=== PATIENT | male | born 1975 | race Caucasian/White ===

== ENCOUNTER 2023-05-16 09:31 | Emergency (ER) | payer OTHER, SELFPAY ==
[2023-05-16 09:38] VITALS: BP 131/73; PULSE 67; RESP 16; TEMP 36; O2SAT 97; BMI 22.8
--- NOTE | 2023-05-16 11:09 | CRLHL7_ITS ---
For Patients: As a result of the Century Cures Act, medical imaging exams and procedure reports are released immediately into your electronic medical record. You may view this report before your referring provider. If you have questions, please contact your health care provider. INDICATION: Abdominal distention and pressure, history of ascites COMPARISON: 08/1921 TECHNIQUE: CT of the abdomen and pelvis after the administration of intravenous contrast. Multiplanar axial, coronal, and sagittal reformats were reconstructed. Contrast: 74 mL Isovue 370 intravenously. Oral contrast was not administered. FINDINGS: Lung bases: Normal. Liver: Cirrhosis. No discrete mass seen. Gallbladder and biliary tree: Very distended gallbladder without substantial wall thickening. No biliary duct dilation. Pancreas: Normal. Spleen: Splenomegaly. 16 cm length. No infarct or mass. The splenic vein is patent. Adrenal glands: Normal. No nodules. Kidneys and bladder: Normal size and position. No cyst or mass. No calculi. No urinary tract dilation. The urinary bladder is normal. GI: Normal. No dilated segments. No abnormal bowel wall thickening or hyperenhancement. Small stool burden. The appendix is normal. Vessels: Aorta and major branches, including the mesenteric vessels: Patent. Normal caliber. No atherosclerotic plaques. IVC and tributaries: Normal. Mesenteric and portal veins: Upper abdominal varices. Peritoneum: Moderate ascites and edema throughout the mesentery and retroperitoneum. Lymph nodes: No adenopathy. Pelvis: Physiologic appearance of the reproductive organs. Bones: No fractures. No focal bone lesions. Normal for age. IMPRESSION: 1. Very distended gallbladder may reflect cholecystitis. No biliary ductal dilatation. 2. Cirrhosis with secondary findings of portal hypertension, including splenomegaly, varices, and moderate ascites. Please note that all CT scans at this facility use dose modulation, iterative reconstruction, and/or weight-based dosing when appropriate to reduce radiation dose to as low as reasonably achievable. Dictated by Rubi Mcintyre MD @ 05/16/2023 1:28:38 PM (Electronically Signed)
[2023-05-16 11:30] LABS: Basophils Absolute Auto 0.04 K/uL (0.00-0.30); Basophils Percent Auto 0.8 % (0.0-3.0); Hematocrit 35.3 % (37.0-53.0); Hemoglobin* 11.7 gm/dL (13.5-17.5); Immature Granulocytes Abs Auto 0.01 K/uL (0.00-0.30); Immature Granulocytes Pct Auto 0.2 %; Mean Corpuscular HGB Conc 33 gm/dL (32-36); Mean Corpuscular Hemoglobin 29 pg (26-34); Mean Corpuscular Volume 88 fL (80-100); Monocytes Percent Auto 13.6 % (0.0-11.0); Neutrophils Absolute Auto 2.67 K/uL (1.7-7.0); Neutrophils Percent Auto 53.4 % (42.0-72.0); Platelet Count* 132 K/uL (140-440); RDW Coefficient of Variation % 14.4 % (11.5-15.5); Red Blood Count 4.02 m/uL (4.30-5.90)
[2023-05-16 11:34] LABS: Slide Review Reflex No
[2023-05-16 11:56] LABS: Chloride* 106 mmol/L (96-114)
[2023-05-16 11:57] LABS: Albumin* 3.6 g/dL (3.3-5.0); Potassium* 3.8 mmol/L (3.6-5.1); Sodium* 138 mmol/L (135-149)
[2023-05-16 11:59] LABS: Anion Gap 7 mEq/L (7-15); Carbon Dioxide* 25 mmol/L (20-32); Creatinine* 0.8 mg/dL (0.5-1.5); Est. Creatinine Clearance* 108.67; Estimated Glomerular Filt Rate 109 ml/min
[2023-05-16 12:00] LABS: Alanine Aminotransferase* 44 U/L (4-50); Alkaline Phosphatase* 163 U/L (40-150); Aspartate Amino Transferase* 71 U/L (12-35); Bilirubin Total* 1.1 mg/dL (0.1-1.5); Blood Urea Nitrogen* 16 mg/dL (5-24); Calcium* 8.4 mg/dL (8.4-10.6); Glucose* 94 mg/dL (60-115); Lipase* 187 U/L (23-300)
--- NOTE | 2023-05-16 12:27 | ED_ITS ---
HPI - General Adult General Date Seen: 05/16/23 Chief complaint: Abdominal Pain Stated complaint: bloating-stomach pain Time Seen by Provider: 05/16/23 10:58 Source: patient Mode of arrival: ambulatory Limitations: no limitations History of Present Illness HPI narrative: Patient is a 47-year-old male with a history of alcohol abuse with last drink being 2 years ago, cirrhosis, ascites presented to the emergency department for abdominal bloating. He states for the past 2 weeks he has noticed abdominal swelling again. He states there is no pain but there is a discomfort associated with it and he feels he isn't hungry aches whenever he eats feels uncomfortable. He does note he has had issues with water retention in the past and previously was on spironolactone and Lasix but has been off it for over years with improvement in his symptoms. He states he restarted taking half a pill Lasix over the past few days to see if the bloating would improve but it has not. He does note previously when he has had issues with water retention he had of lower extremity edema but currently is not have any edema at all. I tried again with his GI specialist but were unable to her told to come to the emergency department. Denies fevers, chills, chest pain, abdominal pain, nausea, vomiting, weakness, diarrhea, constipation. He states he came in because he is concerned his liver could be failing. Related Data Previous Rx's Medication Instructions Recorded furosemide 20 mg tablet 20 mg PO DAILY #14 tabs 05/16/23 spironolactone 50 mg tablet 50 mg PO DAILY #14 tabs 05/16/23 Allergies Allergy/AdvReac Type Severity Reaction Status Date / Time azithromycin AdvReac Severe Verified 05/16/23 12:12 [From Zithromax Z-Keanu] Review of Systems Status of ROS: Reports: 10 or more systems reviewed and unremarkable except as noted in History and below PFSH PFSH Social History Smoking Status: Current some day smoker What tobacco products do you use: cigarettes Do you use any of these nicotine containing products: Other Second hand tobacco smoke exposure: No How often do you have a drink containing alcohol: never How often do you have six or more drinks on one occasion: Never AUDIT-C Alcohol total score: 0 Non-prescribed substance use: marijuana (any form) Non-prescribed substance use details: daily gummies service: No Exam Narrative: Exam Narrative: Const: Well-nourished, Well-developed, in mild distress Eyes: PERRL, no conjunctival injection, and symmetrical lids HENT: Atraumatic external nose and ears. Moist mucous membranes. Neck: Symmetric, trachea midline, No thyromegaly. CVS: RRR, No murmurs or gallops. Peripheral pulses 2+ and equal in all extremities RESP: Unlabored respiratory effort. Clear to auscultation bilaterally. GI: Nontender, moderately distended, No rebound or guarding. MSK:Extremities w/o deformity, Normal Active ROM Skin: Warm, Dry. No rashes or lesions. Neuro: Normal Muscle tone, No focal neurological deficits. Psych: Awake, Alert, & Oriented x3. Appropriate mood and affect. Const: Vital Signs, click to edit/add: Vital Signs - 24 hr 05/16/23 09:38 05/16/23 12:43 05/16/23 15:07 Temperature 96.8 F L 98.2 F 97.3 F L Pulse Rate [Pulse Oximeter] 67 60 54 L Respiratory Rate 16 18 18 Blood Pressure [Ri ght Upper Arm] 131/73 132/77 142/78 H Pulse Oximetry 97 98 98 Oxygen Delivery Me thod Room Air Room Air Room Air Course Vital Signs Vital signs: Initial Vital Signs Temperature 96.8 F L 05/16/23 09:38 Temperature Source Temporal Artery Scan 05/16/23 09:38 Pulse Rate 67 05/16/23 09:38 Respiratory Rate 16 05/16/23 09:38 Blood Pressure 131/73 05/16/23 09:38 Blood Pressure Mean 92 05/16/23 09:38 Blood Pressure Position Sitting 05/16/23 09:38 Pulse Oximetry 97 05/16/23 09:38 Oxygen Delivery Method Room Air 05/16/23 09:38 Vital Signs Temperature 96.8 F L 05/16/23 09:38 Pulse Rate 67 05/16/23 09:38 Respiratory Rate 16 05/16/23 09:38 Blood Pressure 131/73 05/16/23 09:38 Pulse Oximetry 97 05/16/23 09:38 Oxygen Delivery Method Room Air 05/16/23 09:38 Temperature 97.3 F L 05/16/23 15:07 Pulse Rate 54 L 09/27/23 15:07 Respiratory Rate 18 05/16/23 15:07 Blood Pressure 142/78 H 05/16/23 15:07 Pulse Oximetry 98 05/16/23 15:07 Oxygen Delivery Method Room Air 05/16/23 15:07 Medical Decision Making MDM Narrative Medical decision making narrative: Patient is a 47-year-old male presenting for abdominal distention. Symptoms ongoing for the past 2 weeks. He states previously when he had this was more than year ago with his ascites that time he also had lower extremity edema. Denies any associated pain but there is a pressure sensation in his abdomen. He did try and contact his GI specialist post informed to come to the emergency department until they can schedule him an appointment. Patient was concerned she could have liver failure with her his history of cirrhosis. Rule do a CT scan with IV contrast of the abdomen, cbc, CMP, lipase. Patient not requiring pain or nausea medication at this time. Lab work returned showing no concerning abnormalities. His AST and alk-phos are slightly elevated but they are downtrending compared to previous lab results. CT scan showed portal hypertension and splenomegaly which was to be expected again seen is a site ease. There is moderate ascites. He of large dilated gallbladder which was concerning for cholecystitis. Due to this we did order right upper quadrant ultrasound. Was not showing any symptoms of the cholecystitis need to rule out before he can be discharged. Ultrasound returned showing a dilated gallbladder consistent with previous ultrasounds but no clear signs of cholecystitis. He is otherwise doing well we discharged home. They did get a hold of his GI specialist and was recommended to start on spironolactone 50 mg and Lasix 20 mg each daily. I gave him a 2 week prescription of this. They are agreeable with this plan Lab Data Labs: Lab Results 05/16/23 Range/Units 11:20 WBC 5.00 (4.50-11.00) K/uL RBC 4.02 L (4.30-5.90) m/uL Hgb 11.7 L (13.5-17.5) gm/dL Hct 35.3 L (37.0-53.0) % MCV 88 (80-100) fL MCH 29 (26-34) pg MCHC 33 (32-36) gm/dL RDW Coeff of Gelacio 14.4 (11.5-15.5) % Plt Count 132 L (140-440) K/uL Neut % (Auto) 53.4 (42.0-72.0) % Lymph % (Auto) 26.0 (20-44) % [place] % (Auto) 13.6 H (0.0-11.0) % Eos % (Auto) 6.0 (0.0-7.0) % Baso % (Auto) 0.8 (0.0-3.0) % Neut # (Auto) 2.67 (1.7-7.0) K/uL Lymph # (Auto) 1.30 (0.90-2.90) K/uL [place] # (Auto) 0.70 (0.00-0.90) K/UL Eos # (Auto) 0.30 (0.00-0.50) K/uL Baso # (Auto) 0.04 (0.00-0.30) K/uL Abs Immat Gran (auto) 0.01 (0.00-0.30) K/uL Imm/Tot Granulo (auto) 0.2 % Sodium 138 (135-149) mmol/L Potassium 3.8 (3.6-5.1) mmol/L Chloride 106 (96-114) mmol/L Carbon Dioxide 25 (20-32) mmol/L Anion Gap 7 (7-15) mEq/L BUN 16 (5-24) mg/dL Creatinine 0.8 (0.5-1.5) mg/dL Estimated Creat Clear 108.67 Estimated GFR 109 ml/min Glucose 94 (60-115) mg/dL Calcium 8.4 (8.4-10.6) mg/dL Total Bilirubin 1.1 (0.1-1.5) mg/dL AST 71 H (12-35) U/L ALT 44 (4-50) U/L Alkaline Phosphatase 163 H (40-150) U/L Total Protein 7.0 (6.0-8.3) g/dL Albumin 3.6 (3.3-5.0) g/dL Lipase 187 (23-300) U/L Imaging Data Gallbladder ultrasound: Radiologist's impression: INDICATION: Bloating COMPARISON: Same day CT TECHNIQUE: Corado-scale and color ultrasound of the right upper quadrant to include the gallbladder and bile ducts. FINDINGS: The gallbladder is distended. The gallbladder wall is mildly uniformly thickened, 3 mm. There is submucosal edema. No sludge or stones. The extrahepatic bile duct is nondilated and measures 5-6 mm. Coarsened hepatic echotexture with decreased echogenicity consistent with cirrhosis. Moderate ascites. IMPRESSION: Hydropic appearing gallbladder is likely related to cirrhosis and portal hypertension. No ultrasound findings of acute cholecystitis. Dictated by Rubi Mcintyre MD @ 05/16/2023 3:06:12 PM Abdominal and pelvis CT scan: Radiologist's impression: INDICATION: Abdominal distention and pressure, history of ascites COMPARISON: 08/1921 TECHNIQUE: CT of the abdomen and pelvis after the administration of intravenous contrast. Multiplanar axial, coronal, and sagittal reformats were reconstructed. Contrast: 74 mL Isovue 370 intravenously. Oral contrast was not administered. FINDINGS: Lung bases: Normal. Liver: Cirrhosis. No discrete mass seen. Gallbladder and biliary tree: Very distended gallbladder without substantial wall thickening. No biliary duct dilation. Pancreas: Normal. Spleen: Splenomegaly. 16 cm length. No infarct or mass. The splenic vein is patent. Adrenal glands: Normal. No nodules. Kidneys and bladder: Normal size and position. No cyst or mass. No calculi. No urinary tract dilation. The urinary bladder is normal. GI: Normal. No dilated segments. No abnormal bowel wall thickening or hyperenhancement. Small stool burden. The appendix is normal. Vessels: Aorta and major branches, including the mesenteric vessels: Patent. Normal caliber. No atherosclerotic plaques. IVC and tributaries: Normal. Mesenteric and portal veins: Upper abdominal varices. Peritoneum: Moderate ascites and edema throughout the mesentery and retroperitoneum. Lymph nodes: No adenopathy. Pelvis: Physiologic appearance of the reproductive organs. Bones: No fractures. No focal bone lesions. Normal for age. IMPRESSION: 1. Very distended gallbladder may reflect cholecystitis. No biliary ductal dilatation. 2. Cirrhosis with secondary findings of portal hypertension, including splenomegaly, varices, and moderate ascites. Please note that all CT scans at this facility use dose modulation, iterative reconstruction, and/or weight-based dosing when appropriate to reduce radiation dose to as low as reasonably achievable. Dictated by Rubi Mcintyre MD @ 05/16/2023 1:28:38 PM Discharge Plan Discharge Clinical Impression: Ascites Qualifiers: Ascites type: due to alcoholic cirrhosis Qualified Code(s): K70.31 - Alcoholic cirrhosis of liver with ascites Cirrhosis Qualifiers: Hepatic cirrhosis type: alcoholic cirrhosis Ascites presence: with ascites Qualified Code(s): K70.31 - Alcoholic cirrhosis of liver with ascites Patient Disposition: Home, Self-Care Condition: Stable Instructions: Ascites (ED) Additional Instructions: Follow-up with your GI specialist about your ascites. Take the spironolactone 50 mg daily. Take Lasix 20 mg daily. Return for new or worsening symptoms. Make sure to be seen at GI appointment and to bring all the paperwork with the CD- the images that was provided to you at discharge. Prescriptions: New spironolactone 50 mg tablet 50 mg PO DAILY Qty: 14 3RF furosemide 20 mg tablet 20 mg PO DAILY Qty: 14 2RF Follow Up/Referrals: Provider,Not a Local [Primary Care Provider] - Stand Alone Forms: [facility] Info Instructions
[2023-05-16 12:43] VITALS: BP 132/77; PULSE 60; RESP 18; TEMP 36.8; O2SAT 98
--- NOTE | 2023-05-16 13:39 | CRLHL7_ITS ---
For Patients: As a result of the Century Cures Act, medical imaging exams and procedure reports are released immediately into your electronic medical record. You may view this report before your referring provider. If you have questions, please contact your health care provider. INDICATION: Bloating COMPARISON: Same day CT TECHNIQUE: Corado-scale and color ultrasound of the right upper quadrant to include the gallbladder and bile ducts. FINDINGS: The gallbladder is distended. The gallbladder wall is mildly uniformly thickened, 3 mm. There is submucosal edema. No sludge or stones. The extrahepatic bile duct is nondilated and measures 5-6 mm. Coarsened hepatic echotexture with decreased echogenicity consistent with cirrhosis. Moderate ascites. IMPRESSION: Hydropic appearing gallbladder is likely related to cirrhosis and portal hypertension. No ultrasound findings of acute cholecystitis. Dictated by Rubi Mcintyre MD @ 05/16/2023 3:06:12 PM (Electronically Signed)
[2023-05-16 15:07] VITALS: BP 142/78; PULSE 54; RESP 18; TEMP 36.3; O2SAT 98
== END 2023-05-16 15:33 | disposition home or self-care (01) ==
PROVIDERS: Emergency Provider Student in an Organized Health Care Education/Training Program
DX: K70.31 Alcoholic cirrhosis of liver with ascites (principal)
CPT/HCPCS: 36415; 74177; 76705; 80053; 83690; 85025; 99283; 99284; Q9967

== ENCOUNTER 2025-08-09 14:28 | Emergency (ER) | payer BC, SELFPAY ==
--- OUTSIDE RECORDS SUMMARY | 2025-06-12 02:51 | XMS_ITS | Continuity of Care Document ---
Author Organization [facility] Address [address] [address] [place] [address] Phone Care Team Providers Care Technical Asst Name Role Phone Bennie Montesinos MD Unavailable Unavailabl e Allergies, Adverse Reactions, Alerts Substance Reaction Status Criticality azithromycin Rash Active No Information azithromycin Active No Information Medications Medication Instructions Dosage Effective Dates (start - stop) Status Comments lisinopril 20 mg tablet take 1 tablet by oral route every day 20 MG - Active spironolactone 50 mg tablet take 1 tablet by oral route every day 50 MG - Active furosemide 20 mg tablet take 1 tablet by oral route every day 20 MG - Active Procedures Procedure Date Ugi Endo; Dx W/wo Collec Specm 25 Anes - Upper GI Endoscopy Offic/outpt E&m Estab Mod-hi 2 25 cancelled appt Ugi Endo; W/band Lig Varices Ugi Endo; W/bx 1/mx Level Iv-surg Path Gross/micro 23 Offic/outpt E&m Estab Mod-hi 2 23 Ugi Endo; W/bx 1/mx Level Iv-surg Path Gross/micro 22 FibroScan Routine Serum Collection Offic/outpt E&m Estab Mod-hi 2 22 Ugi Endo; W/us Guid Asp/bx Advance Directives Directive Yes / No Effective Date File Name No Information Encounters Encounter Description Practice Location Reason(s) For Visit Diagnoses Date Provider Providers Copied on Encounter [facility], [address] [address], [place], [id number], [place] tel:[phone] [facility] No Information Ross Avery. [address] [facility], [place], [id number] , [place]. [phone] [facility], [address] [address], [place], [id number], [place] tel:[phone] [facility] Alcoholic cirrhosis of liver without ascitesSecondary esophageal varices without bleedingPortal hypertensive gastropathyAlcoh olic cirrhosis of liver without ascitesSecondary esophageal varices without bleedingPortal hypertension 5 Emma Oquendo. [address] [facility], [place], [id number] , [place]. tel:[phone] Verona Jaimes DO. tel:[phone] erring Provider: Referral Self, USE FOR SELF REFERRALS. [facility], [address] [address], [place], [id number], [place] tel:[phone] [facility] No Information 5 Estefany Stewart. [address] [facility], [address], [place], [id number] , [place]. [phone] Referring Provider: Azra Carter MD, [address] [facility] [address], [place], [address] . tel:[phone] Offic/outpt E&m Estab Mod-hi 2 [facility], [address] [address], [place], [id number], [place] tel:[phone] [facility] GI Symptoms or Concerns (chief complaint) Alcoholic cirrhosis of liver without ascitesElevated blood-pressure reading, without diagnosis of hypertension 5 Emma Oquendo. [address] [facility], [address], [place], [address] , [place]. tel:[phone] Verona Jaimes DO. tel:[phone] erring Provider: Referral Self, USE FOR SELF REFERRALS. [facility], [address] [address], [place], [address], [place] tel:[phone] [facility] No Information 5 Emma Oquendo. [address] [facility], [address], [place], [address] , [place]. tel:[phone] Referring Provider: Verona RAMOS, [address] [place] [address], [address]. tel:[phone] [facility], [address] [address], [place], [address], [place] tel:[phone] [facility] No Information 4 Dante Rivers. [address] [facility], [address], [place], [address] , [place]. tel:[phone] Referring Provider: Referral Self, USE FOR SELF REFERRALS. [facility], [address] [address], [place], [address], [place] tel:[phone] [facility] Alcoholic cirrhosis of liver with ascitesSecondary esophageal varices without bleedingOther diseases of stomach and duodenumGastric ulcer, unsp as acute or chronic, w/o hemor or perfAlcoholic cirrhosis of liver with ascitesSecondary esophageal varices without bleeding 3 Jose Wang. [address] [facility], [address], [place], [address] , [place]. tel:[phone] Referring Provider: Referral Self, USE FOR SELF REFERRALS. Offic/outpt E&m Estab Mod-hi 2 [facility], [address] [address], [place], [address], [place] tel:[phone] [facility] GI Symptoms or Concerns (chief complaint) Alcoholic cirrhosis of liver with ascites 0 3 Federica Harris. [address], [address], [place], [place], [address] , [place]. tel: [phone] Referring Provider: Referral Self, USE FOR SELF REFERRALS. [facility], [address] [address], [place], [address], [place] tel:[phone] [facility] Alcoholic cirrhosis of liver without ascites 3 Rank MD Rivers. [address] [facility] [address], [address], [place], [address] , [place]. tel: [phone] [facility], [address] [address], [place], [address], [place] tel:[phone] [facility] Alcoholic cirrhosis of liver without ascitesDisease of stomach and duodenum, unspecifiedAlcoh olic cirrhosis of liver without ascites 2 Rank MD Rivers. [address] [facility] [address], [address], [place], [place], [address] , [place]. tel: [phone] Referring Provider: Referral Self, USE FOR SELF REFERRALS. [facility], [address] [address], [place], [address], [place] tel:[phone] [facility] Alcoholic cirrhosis of liver without ascites 2 Rank MD Rivers. [address] [facility] [address], [address], [place], [address] , [place]. tel: [phone] Referring Provider: Referral Self, USE FOR SELF REFERRALS. Offic/outpt E&m Estab Mod-hi 2 [facility], [address] [address], [place], [address], [place] tel:[phone] [facility] GI Symptoms or Concerns (chief complaint) Alcoholic cirrhosis of liver without ascites 2 Rank MD Rivers. [address], [address], [place], [address] , [place]. tel: [phone] [facility], [address] [address], [place], [address], [place] tel:[phone] [facility] No Information 2 Chip Garrison. [address] [facility], [address], [place], [id number] , [place]. tel: [phone] [facility], [address] [address], [place], [address], [place] tel:[phone] [facility] No Information 1 Windy Pope. [address] [facility] [address], [address], [place], [id number] , [place]. tel: [phone] Referring Provider: Geoff Andrade, [address] [place] [address], [place], [address]. tel:[phone] [facility], [address] [address], [place], [id number], [place] tel:[phone] [facility] No Information 1 Windy Pope. [address] [facility], [address], [place], [id number] , [place]. tel: [phone] Family History Family Member Type Diagnosis Age At Onset Father Problem (finding) alcoholism Immunizations Vaccine Date Status Comments tetanus toxoid, reduced diphtheria toxoid, and acellular pertussis vaccine, adsorbed administered Note: [facility] b i-directional interface ; Source: Other Registry Pneumococcal conjugate vacci ne 20-valent (PCV20), polysaccharide [id number] conjugate, adjuvant, preservative free administered Note: [facility] bi-direct ional interface ; Source: Other Registry SARS-COV-2 (COVID-19) vaccin e, mRNA, spike protein, LNP, preservative free, 30 mcg/0.3mL dose, lance-sucrose formulation administered Note: [facility] C bi- directional interface ; Source: Other Registry tetanus toxoid, reduced diphtheria toxoid, and acellular pertussis vaccine, adsorbed administered Note: [facility] b i-directional interface ; Source: Other Registry Payers Payer name Insurance type Covered alliance party ID Authoriza tion(s) No Information Social History Type Description Quantity Date Captured Comments Alcohol Use Details Unknown Caffeine Use Details Unknown Tobacco Use Status No Information Smoking Status No Information Sex Male Chief Complaint And Reason For Visit No Information Reason For Referral Reason For Referral No Information Plan Of Treatment Date Type Action Status Referral Ordered: follow-up visit with Azra Carter MD 6 Months or by 06/26/2025 Appointment date/timeframe: 6 Months [id number] Ordered: BMP Appointment date/timeframe: 09/22/2023 [id number] Ordered: PT/INR, Whole Blood Appointment date/timeframe: 09/22/2023 [id number] Ordered: CBC, Whole Blood Appointment date/timeframe: 09/22/2023 [id number] Ordered: EGD Appointment date/timeframe: 02/27/2022 [id number] Ordered: FibroScan Appointment date/timeframe: 12/29/2021 [id number] Ordered: AFP, Serum, Tumor Marker Appointment date/timeframe: 03/03/2022 [id number] Ordered: Hepatic Function Panel Appointment date/timeframe: 03/03/2022 [id number] Ordered: Ultrasound Liver Appointment date/timeframe: 12/21/2021 ordered History Of Present Illness Encounter Date Complaint History Of Prese nt Illness GI Symptoms or Concerns This is a 49-year-old male patient with alcoholic cirrhosis. He presents today with his for follow-up. Patient has not had alcohol in 3 and half years. As a result of sobriety, his liver disease is now recompensated. He did have ascites in the past. This has resolved. He remains on small dose diuretics as needed, Lasix 20 mg daily and spironolactone 50 mg daily, particularly that he is not super compliant with low-sodium diet. He has had no issues with hepatic encephalopathy. He denies melena or hematochezia. Course complicated by large nonbleeding esophageal varices status post endoscopic band ligation. He is due for surveillance EGD. He was recently seen by primary care physician for a lump sensation in the right upper quadrant. He underwent CT chest abdomen pelvis with IV contrast on November 24, 2024. Findings were consistent with cirrhosis with portal hypertension including small paraesophageal and perigastric varices and splenomegaly. Small volume right lower quadrant ascites noted. No focal liver lesion was seen. No evidence of lymphadenopathy in the chest, abdomen, or pelvis by imaging criteria. Alpha-fetoprotein normal. Patient is on lisinopril for management of hypertension. GI Symptoms or Concerns This is a 47-year-old male patient with history of alcoholic cirrhosis, ascites, who presents to see me today in the [facility] for followup visit. The patient has not had alcohol in almost 2 years now and had been doing great until recently when he noticed increase in swelling of his abdomen and increase in bloating and girth. He had stopped his low-dose diuretics as he thought he was doing well. He ended up going to the emergency room where he had an ultrasound showing initially concern for some ascites that was deemed as moderate and changes in his gallbladder. He had a CT scan showed a very distended gallbladder, however, apparently this is something chronic for him. The patient was restarted on low-dose diuretics and over the last 5 days reports that his abdominal girth has significantly decreased and he feels better. He is maintained on low-sodium diet less than 2 g per day. He denies any symptoms of confusion, jaundice, melena, or hematochezia. He did not have any lo GI Symptoms or Concerns Mr. Kailash Mcqueen is a 46-year-old gentleman with alcoholic cirrhosis. He has not had any alcohol now since late July. He originally had significant swelling in the ankles and abdomen. That has resolved on low-dose furosemide and Aldactone. That is followed by his primary care physician. He did not have any confusion. He had no black stools or blood in the stool. He has gone through treatment for chemical dependency. He says he has no intention of drinking again. He is watching his sodium intake to some degree. He does go out to eat occasionally and will have swelling of the ankles afterwards. His endorses no confusion. His jaundice has resolved. We spent a good deal of time talking about the pathophysiology of liver disease and the prognosis and symptoms that he will possibly note. I talked about how to assess for encephalopathy and his risk of liver cancer. Fortunately, he seems to have a baseline of fairly good baseline clinical picture. Would be helpful if we c Functional Status Date Functional Assessmen t No Information Instructions Date Instruction Additional Infor moisés 1. EGD and we will p cameron to get this done today as the patient drove long distance to come to his appointment expecting to get one too.2. Low sodium less than 2 g sodium diet per day.3. Continue low-dose diuretics at 20 mg furosemide and 50 mg spironolactone.4. BMP in 10 days.5. Ultrasound of liver in 6 months.6. [facility]ELD laboratories and AFP in 4 months.7. Continue to abstain from alcohol.8. Follow up in 4 months. Related to Alcoholic cirrhosis of liver with ascites Sodium Controlled Diet - 2 grams Related to Alcoholic cirrhosis of liver without ascites Assessments Type Assessment Date No Information Patient Care Teams Name Effective Dates (start - stop) Status Members No Information
--- OUTSIDE RECORDS SUMMARY | 2025-06-12 02:51 | XMS_ITS | Continuity of Care Document ---
Author Organization [facility] Address [address] [address] [place] [address] Phone Care Team Providers Care Supervisor Safety Deposit Name Role Phone Bennie Montesinos MD Unavailable [...] Diagnoses Date Provider Providers Copied on Encounter [facility], [address] [address], [place], [id number], [place] tel:[phone] [facility] No Information Ross Avery. [address] [facility], [place], [id number] , [place]. [phone] [facility], [address] [address], [place], [address], [place] tel:[phone] [facility] Alcoholic cirrhosis of liver without ascitesSecondary esophageal varices without bleedingPortal hypertensive gastropathyAlcoh olic cirrhosis of liver without ascitesSecondary esophageal varices without bleedingPortal hypertension 5 Emma Oquendo. [address] [facility], [address], [place], [id number] , [place]. tel: [phone] Verona Jaimes DO. tel:[phone] erring Provider: Referral Self, USE FOR SELF REFERRALS. [facility], [address] [address], [place], [address], [place] tel:[phone] [facility] No Information 5 Estefany Stewart. [address] [facility], [address], [place], [address] , [place]. tel: [phone] Referring Provider: Azra Carter MD, [address] [facility] [address], [place], [address] . tel:[phone] Offic/outpt E&m Estab Mod-hi 2 [facility], [address] [address], [place], [address], [place] tel:[phone] [facility] GI Symptoms or Concerns (chief complaint) Alcoholic cirrhosis of liver without ascitesElevated blood-pressure reading, without diagnosis of hypertension 5 Emma Oquendo. [address] [facility], [place], [address] , [place]. tel:[phone] Verona Jaimes DO. tel:[phone] erring Provider: Referral Self, USE FOR SELF REFERRALS. [facility], [address] [address], [place], [address], [place] tel:[phone] [facility] No Information 5 Emma Oquendo. [address] [facility], [address], [place], [address] , [place]. tel:[phone] Referring Provider: Verona RAMOS, [address] [place] [address], [address]. tel:[phone] [facility], [address] [address], [place], [address], [place] tel:[phone] [facility] No Information 4 Dante Rivers. [address] [facility], [address], [place], [address] , [place]. tel:[phone] Referring Provider: Referral Self, USE FOR SELF REFERRALS. [facility], [address] [address], [place], [address], [place] tel:[phone] [facility] Alcoholic cirrhosis of liver with ascitesSecondary esophageal varices without bleedingOther diseases of stomach and duodenumGastric ulcer, unsp as acute or chronic, w/o hemor or perfAlcoholic cirrhosis of liver with ascitesSecondary esophageal varices without bleeding 3 Jose Wang. [address] [facility], [address], [place], [address] , [place]. tel:[phone] Referring Provider: Referral Self, USE FOR SELF REFERRALS. Offic/outpt E&m Estab Mod-hi 2 [facility], [address] [address], [place], [address], [place] tel:[phone] [facility] GI Symptoms or Concerns (chief complaint) Alcoholic cirrhosis of liver with ascites 0 3 Federica Harris. [address], [address], [place], [address] , [place]. tel: [phone] Referring Provider: Referral Self, USE FOR SELF REFERRALS. [facility], [address] [address], [place], [address], [place] tel:[phone] [facility] Alcoholic cirrhosis of liver without ascites 3 Rank MD Rivers. [address] [facility] [address], [address], [place], [address] , [place]. tel: [phone] [facility], [address] [address], [place], [address], [place] tel:[phone] [facility] Alcoholic cirrhosis of liver without ascitesDisease of stomach and duodenum, unspecifiedAlcoh olic cirrhosis of liver without ascites 2 Rank MD Rivers. [address] [facility] [address], [address], [place], [address] , [place]. tel: [phone] Referring Provider: Referral Self, USE FOR SELF REFERRALS. [facility], [address] [address], [place], [address], [place] tel:[phone] [facility] Alcoholic cirrhosis of liver without ascites 2 Rank MD Rivers. [address] [facility] [address], [address], [place], [address] , [place]. tel: [phone] Referring Provider: Referral Self, USE FOR SELF REFERRALS. Offic/outpt E&m Estab Mod-hi 2 [facility], [address] [address], [place], [address], [place] tel:[phone] [facility] GI Symptoms or Concerns (chief complaint) Alcoholic cirrhosis of liver without ascites 2 Rank MD Rivers. [address], [address], [place], [address] , [place]. tel: [phone] [facility], [address] [address], [place], [address], [place] tel:[phone] [facility] No Information 2 Chip Garrison. [address] [facility], [address], [place], [address] , [place]. tel: [phone] [facility], [address] [address], [place], [address], [place] tel:[phone] [facility] No Information 1 Windy Pope. [address] [facility] [address], [address], [place], [id number] , [place]. tel: [phone] Referring Provider: Geoff Andrade, [address] [place] [address], [place], [address]. tel:[phone] [facility], [address] [address], [place], [address], [place] tel:[phone] [facility] No Information 1 Windy Pope. [address] [facility], [address], [place], [address] , [place]. tel: [phone] Family History Family Member Type Diagnosis Age At Onset Father Problem (finding) alcoholism Immunizations Vaccine Date Status Comments tetanus toxoid, reduced diphtheria toxoid, and acellular pertussis vaccine, adsorbed administered Note: [facility] b i-directional interface ; Source: Other Registry Pneumococcal conjugate vacci ne 20-valent (PCV20), polysaccharide [id number] conjugate, adjuvant, preservative free administered Note: [facility] [...] Registry Payers Payer name Insurance type Covered green party ID Authoriza tion(s) No Information Social [...] or by 06/26/2025 Appointment date/timeframe: 6 Months [id number] Ordered: BMP Appointment date/timeframe: 09/22/2023 [id number] Ordered: PT/INR, Whole Blood Appointment date/timeframe: 09/22/2023 [id number] Ordered: CBC, Whole Blood Appointment date/timeframe: 09/22/2023 [id number] Ordered: EGD Appointment date/timeframe: 02/27/2022 [id number] Ordered: FibroScan Appointment date/timeframe: 12/29/2021 [id number] Ordered: AFP, Serum, Tumor Marker Appointment date/timeframe: 03/03/2022 [id number] Ordered: Hepatic Function Panel Appointment date/timeframe: 03/03/2022 [id number] Ordered: Ultrasound Liver Appointment date/timeframe: 12/21/2021 ordered [...]
[2025-08-09] VITALS (7 sets, daily range): BP systolic 152; BP diastolic 90; PULSE 51–59; RESP 14–28; TEMP 36.8; O2SAT 88–98
--- OUTSIDE RECORDS SUMMARY | 2025-08-09 14:30 | XMS_ITS | Clinical Summary ---
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 180 Tablet 5Active spironolactone 25 mg tablet Indications:Alcoholic liver damage (HC)Take 1 Tablet (25 mg) by mouth once daily. 90 Tablet 5Active furosemide 20 mg tablet Indications:Alcoholic liver damage (HC)Take 2 Tablets (40 mg) by mouth once daily in the morning. 180 Tablet 5Active Active Problems ProblemNoted DateDiagnosed DateSecondary esophageal varices without bleeding 5Chronic alcohol use3Peripheral /08/2023 Euifidkmtwnotbph06/08/2023Elevated TSH3Alcoholic liver ckmizg5008/29/2021 Ndivgqb2410/22/2019 Overview (10/22/2019): Citalopram up to 20 mg daily did not help for the 1 month that he tried it. Propranolol did not help with Anxiety. Sertraline 25 mg did not help and caused loose stools. Elevated LFTs10/13/2018Degeneration of Cervical Intervertebral Disc07/23/2008 Unspecified essential ulrtoqxlfvii29/15/2008Other and unspecified hyperlipidemia 09/03/2007Personal history of tobacco use, presenting hazards to health 11/21/2006History of carotid artery dqjklvyeca86/04/2007 Overview (11/24/2008): Left History of resolved completely Resolved Problems ProblemNoted DateDiagnosed DateResolved DateMacrocytic kzcxdj8706/27/2023 09/28/20234809Hzypfdw10/08/202302/issection of carotid tlgyia4906/27/2023 06/27/2023scites due to alcoholic cygxntuua21/04/2024Lymphadenopathy Overview (08/26/2021): He has Subcarinal Lymphadenopathy that Dr. Ray of Oncology recommends that he have a PET scan and lab work to investigate further. He has not returned multiple phone calls and 3 certified letters regarding this. If he comes in for any reason please address the above. Alcohol withdrawal seizure without rosvtfumrodo55/11/202111/03/2023 Overview (11/23/2021): Sep 2020 - [facility] Unspecified disorder of autonomic nervous yinxhj88 Overview (11/24/2008): left tongue weakness Resolved completely in 2006 Immunizations ImmunizationAdministration DatesNext DueCOVID-19 vaccine (Solaria 30mcg/0.3mL) 12YO+ PREET-SUCROSE PF, MDV10/17/2021neumococcal Conj 20-valent (Prevnar 20)11/28/2024Tdap11/28/2024,11/24/2008 Family History Medical HistoryRelationNameCommentsAnxiety disorderFatherArthritisMotherGood HealthMotherAnxiety disorderSisterRelationNameStatusCommentsFatherMotherSister Social History Tobacco UseTypesPacks/DayYears UsedDateSmoking Tobacco: FormerCigarettes Smokeless Tobacco: CurrentChewLast attempted to quit: 01/16/1997 Tobacco Cessation:Ready to Q uit: Not Asked; Counseling Given: Not Answered Comments:ATQ chewing 1/3 tin per day Alcohol UseStandard Drinks/WeekCommentsNot Currently0 (1 standard drink = 0.6 oz pure alcohol)none since 10/09/20PHQ-2AnswerDate RecordedPHQ-2 TOTAL SCORE1 06/27/2023Social ConnectionsAnswerDate RecordedDo you often feel lonely or isolated from those around you?Financial Resource StrainAnswerDate RecordedDifficulty of Paying Living Yqtpjmib905/31/2025Difficulty of Paying Living ExpensesNot on file11/17/2024Food InsecurityAnswerDate RecordedDo you worry your food will run out before you are able to buy more? Transportation NeedsAnswerDate RecordedDoes lack of transportation keep you from medical appointments?Does lack of transportation keep you from work, meetings or getting things that you need?Housing StabilityAnswerDate RecordedWhat is your housing situation today?UtilitiesAnswerDate RecordedDo you have trouble paying for utilities (for example, heat, electricity, water, phone)?Sex and Gender InformationValueDate RecordedSex Assigned at BirthNot on fileLegal GvpNpmn2409/02/2012 7:05 AM [employer] Gender IdentityNot on fileSexual OrientationNot on fileOccupationIndustryJob Start DateJob End DateElectricianNot on fileNot on fileNot on file Last Filed Vital Signs Vital SignReadingTime TakenCommentsBlood Qzudqygn024/6904 3:41 PM CDT Vzrve5454 3:41 PM KGTXukkabwovwy29.4 ??C (97.5 ??F)11/05/2020 3:35 PM CDTRespiratory Gzgo5308/ 4:05 PM CDTOxygen Kmczfxavjj48%11/28/2024 3:41 PM CDTInhaled Oxygen Concentration--Itzild26.3 kg (152 lb 12.8 oz)11/17/2024 2:42 PM QBDTpxeok291.7 cm (5' 8)11/05/2020 1:10 PM CDTBody Mass Index23.23 11/05/2020 1:10 PM CDT Plan of Treatment Health MaintenanceDue DateLast DoneCommentsHIV for age 15-Hepatitis C screening for age 18-Hepatitis B series for 19+ (1 of 3 - 19+ 3- dose series)1993Colonoscopy through age BMI (ht and wt on same day) for age 18+/, 10/13/2020, 10/22/2019, Additional history existsDepression screening for age 12+/03/2023, 03/22/2022, 10/13/2020, Additional history existsZoster (shingles) series for age 50+ (1 of 2)2024OVID-19 vaccine series (2 - 2024- season)/ Influenza Vaccine (#1)2025Lipids for age 45-757109/11/2021, 11/05/2013, 09/09/2007, Additional history existsTetanus qseaigc0711/28/2034 11/28/2024, 11/24/2008RSV vaccine for adults or (1 - 1-dose 75+ series)2049Pneumococcal series for age 50+Tbumifpmj96/11/2025 Procedures Procedure NamePriorityDate/TimeAssociated DiagnosisCommentsLIPID PANELRoutine 07/12/2022 12:50 PM [employer] Alcoholic liver damage (HC) from Last 3 Months or Most Recently Relevant to Health Maintenance Results * LIPID PANEL (07/12/2022 12:50 PM [employer])ComponentValueRef RangeTest Method Analysis TimePerformed AtPathologist SignatureCHOLESTEROL,[id number] - 199 mg/dL07/15/2022 3:[address] [facility] NHTFTGOHQZPHS78<150 mg/dL07/15/2022 3:45 AM [facility] LABORATORYHDL MNBRNXMLLRU82>40 mg/dL07/15/2022 3:45 AM [facility] LABORATORYNON-HDL XJJZOTQXPTR656<145 mg/dl07/15/2022 3:45 AM [facility] LABORATORYCHOL/HDL RATIO3.07<4.50 07/15/2022 3:45 AM [facility] LABORATORYLDL PNZDRHQWNPF707<=130 mg/dL07/15/2022 3:45 AM [facility]- CENTRAL LABORATORYVLDL AXBHLNWRLNT97<=30 mg/dL07/15/2022 3:45 AM [facility]CENTRAL LABORATORYPROVIDER ORDERED PTTONJQHNBIG18/26/2022 3:45 AM [facility])Anatomical Location / LateralityCollection Method / VolumeCollection TimeReceived TimeBloodBLOOD SPECIMEN / UnknownVenipuncture / Bfybvir8607/12/2022 12:50 PM CST07/12/2022 12:51 PM [employer] Narrative Authorizing ProviderResult TypeResult StatusAmy Jojo Atkins MDCHEMISTRYFinal ResultPerforming OrganizationAddressCity/State/ZIP CodePhone Number [facility] [address] [place] [address], [facility] [address] [place] [address], from Last 3 Months or Most Recently Relevant to Health Maintenance Insurance * Guarantor: Kailash Mcqueen TypeRelation to PatientDate of BirthPhone Billing AddressPersonal/NkxuohWlak93/24/1976 [address] [place] [address] * Guarantor: Alisia McqueenAccount TypeRelation to PatientDate of BirthPhone Billing AddressPersonal/QsjbvaGxboh54/[birth year][address] [place] [address] Advance Directives * Full Code (Latest Code Status on File) Date ActivatedDate InactivatedComments11/05/2020 2:31 PM11/05/2020 6:25 PM QuestionAnswerCommentsCode Status Discussion:* Not Discussed Care Teams Team MemberRelationshipSpecialtyStart DateEnd Date Verona Jaimes DO [facility] [place] [address] [facility] Xwvplxbt85/[facility]/23 John Tan MD Family Umryhgwd22/19/12 Massiel Teague PA [address] [place] [id number] GastroenterologyPhysician Assistant09/22/21
[2025-08-09] MEDS: IPRAT-ALBUT 0.5-2.5 MG/3 ML NEB 1 NEB IH (14:42)
[2025-08-09 15:14] LABS: HCO3 VBG 27 mmol/L (21-28); Hematocrit* 40.6 % (37.0-53.0); Hemoglobin* 13.8 gm/dL (13.5-17.5); Immature Granulocytes Abs Auto 0.05 K/uL (0.00-0.30); Immature Granulocytes Pct Auto 0.7 %; Mean Corpuscular HGB Conc 34 gm/dL (32-36); Mean Corpuscular Hemoglobin 30 pg (26-34); Mean Corpuscular Volume 88 fL (80-100); PCO2 VBG 49 mmHG (40-50); PO2 VBG 42.5 mmHG (25-47); RDW Coefficient of Variation % 13.8 % (11.5-15.5); Red Blood Count* 4.62 m/uL (4.30-5.90); White Blood Count* 7.29 K/uL (4.50-11.00); pH VBG 7.342 (7.32-7.43)
[2025-08-09 15:16] LABS: Lymphocytes Absolute Auto 1.10 K/uL (0.90-2.90); Slide Review Reflex No
[2025-08-09 15:40] LABS: Albumin* 4.3 g/dL (3.3-5.0); Chloride* 105 mmol/L (96-114); Potassium* 3.8 mmol/L (3.6-5.1); Sodium* 139 mmol/L (135-149)
[2025-08-09 15:43] LABS: Alanine Aminotransferase* 43 U/L (4-50); Alkaline Phosphatase* 109 U/L (40-150); Anion Gap 8 mEq/L (7-15); Aspartate Amino Transferase* 59 U/L (12-35); Bilirubin Total* 1.4 mg/dL (0.1-1.5); Blood Urea Nitrogen* 16 mg/dL (7-30); Carbon Dioxide* 26 mmol/L (20-32); Creatinine* 1.1 mg/dL (0.5-1.5); Estimated Glomerular Filt Rate 82 ml/min; Total Protein* 7.5 g/dL (6.0-8.3)
[2025-08-09 15:44] LABS: Calcium* 8.9 mg/dL (8.4-10.6); D Dimer Quantitative* 0.35 ug/ml (0.00-0.50); Glucose* 110 mg/dL (60-115)
[2025-08-09 15:53] LABS: NT Pro B Type NatriureticPept* 262 pg/mL (See Note)
[2025-08-09 15:58] LABS: PCR FLU A Negative PCR FLU A (Negative); PCR FLU B Negative PCR FLU B (Negative); PCR RSV Negative PCR RSV (Negative); SARS PCR* Negative SARS-CoV-2 (Negative)
--- NOTE | 2025-08-09 16:09 | CRLHL7_ITS ---
For Patients: As a result of the Cures Act, medical imaging exams and procedure reports are released immediately into your electronic medical record. You may view this report before your referring provider. If you have questions, please contact your health care provider. INDICATION: Cough. Shortness breath. Wheezing. FINDINGS: PA and lateral chest x-rays show a normal cardiac silhouette. The lungs show no focal pulmonary opacities. Sharp pleural margins. No pneumothorax. IMPRESSION: No focal pulmonary opacities. No pneumothorax. Dictated by Raghav Menendez MD @ 08/09/2025 5:00:02 PM Dictated by: Raghav Menendez MD @ 08/09/2025 17:00:12 (Electronically Signed)
--- NOTE | 2025-08-09 16:14 | ED.GENADULT ---
HPI - General Adult General Date Seen: 08/09/25 Chief complaint: Shortness of Breath/Dyspnea Stated complaint: Shortness of breath Time Seen by Provider: 08/09/25 14:41 History of Present Illness HPI narrative: Patient is a 49-year-old, generally pretty healthy mid aged male who presents with his for evaluation of shortness of breath and wheezing. Says he has been having trouble off and on for a month, but is worse this weekend. Sometimes he feels okay and then he gets really congested and wheezy in the knee gets short of breath. He has not had a fever, has had head and chest congestion. Has not had chest pain, lower extremity swelling, palpitations. He does smoke. No history of asthma or COPD. Related Data Home Medications ?Medication ?Instructions ?Recorded ?Confirmed lisinopril PO DAILY 08/09/25 Previous Rx's ?Medication ?Instructions ?Recorded furosemide 20 mg tablet 20 mg PO DAILY #14 tabs 05/16/23 spironolactone 50 mg tablet 50 mg PO DAILY #14 tabs 05/16/23 Allergies Allergy/AdvReac Type Severity Reaction Status Date / Time azithromycin (From Zithromax AdvReac Severe Verified 08/09/25 14:42 Z-Keanu) Review of Systems Status of ROS: Reports: 10 or more systems reviewed and unremarkable except as noted in History and below [facility] Social History Smoking Status: Current some day smoker What tobacco products do you use: cigarettes Do you use any of these nicotine containing products: Other Second hand tobacco smoke exposure: No How often do you have a drink containing alcohol: never How often do you have six or more drinks on one occasion: Never AUDIT-C Alcohol total score: 0 Non-prescribed substance use: marijuana (any form) Non-prescribed substance use details: daily gummies service: No Exam Narrative: Exam Narrative: Vital signs reviewed In general, an alert, nontoxic middle-aged man. Wheezing, but in no respiratory distress. Speaks in full sentences. Head: Normocephalic, atraumatic. Eyes: Sclera clear. Pupils equal and reactive. ENT: Mucous membranes moist. Neck: Supple without adenopathy. Heart: Regular rate and rhythm without murmur. Lungs: Extensive bilateral wheezing inspiratory and expiratory. No significant increased work of breathing. Abdomen: Soft, nontender to palpation. Extremities: Well perfused, pulses intact. No significant edema. Neurologic: Alert, conversant. Speech fluent, face symmetric. Moves all extremities equally. Skin: Warm, dry well perfused. Affect: Normal. Const: Vital Signs, click to edit/add: Vital Signs - 24 hr 08/09/25 14:43 08/09/25 14:46 08/09/25 14:56 Temperature 98.2 F Pulse Rate 59 L Pulse Rate [Pulse Oximeter] 59 L Respiratory Rate 28 H Blood Pressure [Ri ght Upper Arm] 152/90 H Pulse Oximetry 88 96 98 Oxygen Delivery Me thod Room Air 08/09/25 15:00 08/09/25 15:15 08/09/25 16:22 Temperature Pulse Rate 53 L 51 L 52 L Pulse Rate [Pulse Oximeter] Respiratory Rate 14 Blood Pressure [Ri ght Upper Arm] Pulse Oximetry 94 93 90 Oxygen Delivery Me thod 08/09/25 16:52 Temperature Pulse Rate 56 L Pulse Rate [Pulse Oximeter] Respiratory Rate 14 Blood Pressure [Ri ght Upper Arm] Pulse Oximetry 92 Oxygen Delivery Me thod Course Course ED Course: Patient had a DuoNeb on arrival, he felt significantly improved after that, O2 sats were 91-92%. Symptoms may simply be related to bronchospasm, but other diagnostic considerations would include pneumonia, congestive heart failure, pulmonary embolism, interstitial lung disease, among others. I did a chest x-ray, by my review this is negative. Awaiting radiology review. I ordered labs, I reviewed all of these personally, and they are normal, his troponin is negative, D-dimer is negative, gas is normal, CBC shows a normal white blood cell count hemoglobin. He does have slightly low platelet count at 962754. Metabolic panel normal. BNP is 262. I gave him 60 mg of prednisone here, he did have a little recurrence of wheezing and I am giving him a 2nd albuterol neb but overall I think he will be able to go home with treatment for bronchitis/bronchospasm with steroids and albuterol. Return any time to the ER for worsening symptoms or symptoms that do not improve with inhaler, high fevers, etcetera. Otherwise primary care follow-up if not improving over the next few days. Radiology read of x-ray is negative. Vital Signs Vital signs: Initial Vital Signs Respiratory Effort Spontaneous, Labored 08/09/25 14:35 Respiratory Depth Shallow 08/09/25 14:35 Respiratory Pattern Tachypnea 08/09/25 14:35 Vital Signs Temperature 98.2 F 08/09/25 14:43 Pulse Rate 59 L 08/09/25 14:43 Respiratory Rate 28 H 08/09/25 14:43 Blood Pressure 152/90 H 08/09/25 14:43 Pulse Oximetry 88 08/09/25 14:43 Oxygen Delivery Method Room Air 08/09/25 14:43 Temperature 98.2 F 08/09/25 14:43 Pulse Rate 56 L 08/09/25 16:52 Respiratory Rate 14 08/09/25 16:52 Blood Pressure 152/90 H 08/09/25 14:43 Pulse Oximetry 92 08/09/25 16:52 Oxygen Delivery Method Room Air 08/09/25 14:43 Medications Administered Medications: Discontinued Medications Generic Name Dose Route Start Last Admin Trade Name Freq PRN Reason Stop Dose Admin Albuterol 2.5 mg 08/09/25 16:14 08/09/25 16:19 Albuterol Sulfate 2.5 Mg/3 Ml Vial.Neb NEB 08/09/25 16:15 2.5 mg ONCE ONE Administration Albuterol/Ipratropium 1 neb 08/09/25 14:46 08/09/25 14:42 Iprat-Albut 0.5-2.5 Mg/3 Ml Neb IH 08/09/25 14:47 1 neb ONCE ONE Administration Prednisone 60 mg 08/09/25 14:46 08/09/25 14:53 Prednisone 20 Mg Tablet PO 08/09/25 14:47 60 mg ONCE ONE Administration Medical Decision Making Lab Data Labs: Lab Results 08/09/25 08/09/25 Range/Units 15:00 15:04 WBC 7.29 (4.50-11.00) K/uL RBC 4.62 (4.30-5.90) m/uL Hgb 13.8 (13.5-17.5) gm/dL Hct 40.6 (37.0-53.0) % MCV 88 (80-100) fL MCH 30 (26-34) pg MCHC 34 (32-36) gm/dL RDW Coeff of Gelacio 13.8 (11.5-15.5) % Plt Count 115 L (140-440) K/uL Neut % (Auto) 60.9 (42.0-72.0) % Lymph % (Auto) 14.8 L (20-44) % Patrick % (Auto) 12.8 H (0.0-11.0) % Eos % (Auto) 10.0 H (0.0-7.0) % Baso % (Auto) 0.8 (0.0-3.0) % Neut # (Auto) 4.44 (1.7-7.0) K/uL Lymph # (Auto) 1.10 (0.90-2.90) K/uL Patrick # (Auto) 0.90 (0.00-0.90) K/UL Eos # (Auto) 0.70 H (0.00-0.50) K/uL Baso # (Auto) 0.06 (0.00-0.30) K/uL Abs Immat Gran (auto) 0.05 (0.00-0.30) K/uL Imm/Tot Granulo (auto) 0.7 % D-Dimer Quant (PE/DVT) 0.35 (0.00-0.50) ug/ml VBG pH 7.342 (7.32-7.43) VBG pCO2 49 (40-50) mmHG VBG pO2 42.5 (25-47) mmHG VBG HCO3 27 (21-28) mmol/L Sodium 139 (135-149) mmol/L Potassium 3.8 (3.6-5.1) mmol/L Chloride 105 (96-114) mmol/L Carbon Dioxide 26 (20-32) mmol/L Anion Gap 8 (7-15) mEq/L BUN 16 (7-30) mg/dL Creatinine 1.1 (0.5-1.5) mg/dL Estimated GFR 82 ml/min Glucose 110 (60-115) mg/dL Calcium 8.9 (8.4-10.6) mg/dL Total Bilirubin 1.4 (0.1-1.5) mg/dL AST 59 H (12-35) U/L ALT 43 (4-50) U/L Alkaline Phosphatase 109 (40-150) U/L POC Troponin I High Sensi < 2.9 L (2.9-28.0) pg/mL C-Reactive Protein 0.8 (0.5-1.0) mg/dL NT-Pro-B Natriuret Pep 262 (See Note) pg/mL Total Protein 7.5 (6.0-8.3) g/dL Albumin 4.3 (3.3-5.0) g/dL SARS-CoV-2 (PCR) Negative SARS-CoV-2 (Negative) Influenza Type A (PCR) Negative PCR FLU A (Negative) Influenza Type B (PCR) Negative PCR FLU B (Negative) RSV (PCR) Negative PCR RSV (Negative) Imaging Data Chest x-ray: Attestation: I have reviewed the pertinent imaging results. Radiologist's impression: Patient: Kailash Mcqueen MR#: [id number] : 1975 Acct:[id number] Loc: ED Service Date: 08/09/[address]: Ordering Physician: Yin Allred M.D. Date of Service: 08/09/25 Procedure(s): XR chest 2V Accession Number(s): [id number] cc: Yin Allred M.D.; Verona Jaimes, DO~ For Patients: As a result of the Cures Act, medical imaging exams and procedure reports are released immediately into your electronic medical record. You may view this report before your referring provider. If you have questions, please contact your health care provider. INDICATION: Cough. Shortness breath. Wheezing. FINDINGS: PA and lateral chest x-rays show a normal cardiac silhouette. The lungs show no focal pulmonary opacities. Sharp pleural margins. No pneumothorax. IMPRESSION: No focal pulmonary opacities. No pneumothorax. Dictated by Raghav Menendez MD @ 08/09/2025 5:00:02 PM Dictated by: Raghav Menendez MD @ 08/09/2025 17:00:12 Discharge Plan Discharge Clinical Impression: Bronchitis Patient Disposition: Home, Self-Care Condition: Improved Instructions: Acute Bronchitis (ED) Additional Instructions: Your lab tests are all reassuring, and your x-ray does not show any signs of heart failure, pneumonia, collapsed lung or other acute problems. Your symptoms are most likely related to bronchitis and inflammation in the airways. I would like you to take prednisone as prescribed. I am also giving you an inhaler that he can use every 4 hours as needed for wheezing, cough, or shortness of breath. If you are not improving over the next few days, please make an appointment to see primary care. If you are feeling worse, have significant difficulty breathing that does not respond to your inhaler, are requiring use of your inhaler more frequently than every 3-4 hours, or if new symptoms such as high fever or chest pain, return to the emergency department for re-evaluation. Prescriptions: No Action spironolactone 50 mg tablet 50 mg PO DAILY Qty: 14 3RF furosemide 20 mg tablet 20 mg PO DAILY Qty: 14 2RF lisinopril PO DAILY Follow Up/Referrals: Verona Jaimes DO [Primary Care Provider, Family Practice] Stand Alone Forms: BackupAgent Info Instructions Procedures ABG Interpretation ABG Results: 08/09/25 15:00 VBG pH 7.342 VBG pCO2 49 VBG pO2 42.5 VBG HCO3 27
[2025-08-09] MEDS: ALBUTEROL SULFATE 2.5 MG/3 ML VIAL.NEB NEB (16:19)
== END 2025-08-09 17:19 | disposition home or self-care (01) ==
PROVIDERS: Emergency Provider Emergency Medicine; PCP Family Medicine
DX: J20.9 Acute bronchitis, unspecified (principal); F17.210 Nicotine dependence, cigarettes, uncomplicated
CPT/HCPCS: 36415; 71046; 80053; 82803; 83880; 84484; 85025; 85379; 86140; 87631; 94640; 94761; 99284; J7512